=== PATIENT | female | born 1940 | race Two or more races ===

== ENCOUNTER 2017-01-22 22:59 | Emergency (ER) | payer MEDICARE, MEDICAID ==
[~2017-01-22] VITALS: Ht 165.1 cm; Wt 67.1 kg
[2017-01-22] MEDS ORDERED: PANTOPRAZOLE 80 MG in IV NS 0.9% 100 ML IV ONE (23:30)
[2017-01-22] MEDS ORDERED: PANTOPRAZOLE 80 MG in IV NS 0.9% 500 ML IV ONE (23:30)
[2017-01-22 23:51] LABS: BASOPHILS % (AUTO) 0.6 % (0.0-2.0); DIFF TOTAL % 100 %; EOSINOPHILS # (AUTO) 0.2 /CMM (0.0-0.7); EOSINOPHILS % (AUTO) 3.1 % (0.0-6.0); HEMATOCRIT 25 % (33-45); LYMPHOCYTES # (AUTO) 0.5 /CMM (0.8-4.8); LYMPHOCYTES % (AUTO) 10.1 % (20.0-44.0); MEAN CORPUSCULAR HEMOGLOBIN 33 PG (26.0-33.0); MEAN CORPUSCULAR HGB CONC 32 g/dl (31.0-36.0); MEAN CORPUSCULAR VOLUME 103 fL (82-100); MONOCYTES # (AUTO) 0.4 /CMM (0.1-1.30); MONOCYTES % (AUTO) 7.3 % (2.0-12.0); NEUTROPHILS % (AUTO) 78.9 % (43.0-81.0); PLATELET COUNT (AUTO) 177 /CMM (150-450); RED BLOOD CELL COUNT(AUTO) 2.41 MIL/uL (4.0-5.2); WHITE BLOOD COUNT (AUTO) 5.1 K/uL (4.3-11.0)
[2017-01-22 23:52] LABS: CALCIUM, SERUM 7.9 mg/dL (8.5-10.1); CREATININE 3.1 mg/dL (0.6-1.3); POTASSIUM 3.7 mmol/L (3.5-5.1)
[2017-01-22 23:58] LABS: ALBUMIN 2.6 g/dL (3.4-5.0); BILIRUBIN,DIRECT 0.2 mg/dL (0.0-0.2); BILIRUBIN,TOTAL 0.5 mg/dL (0.2-1.0); INDIRECT BILIRUBIN 0.3 mg/dL (0.0-1.1); TOTAL PROTEIN, SERUM 6.1 g/dL (6.4-8.2)
[2017-01-23 00:03] LABS: PROTHROMBIN TIME 10.8 SECS (9.5-12.7)
[2017-01-23 00:33] VITALS: BP 152/64
[2017-01-23 02:03] LABS: EOSINOPHILS % (MANUAL) 2 % (0-4); LYMPHOCYTES % (MANUAL) 10 % (16-48)
[2017-01-23 02:04] LABS: ANISOCYTOSIS 1+; PLATELET ESTIMATE ADEQUATE
== END 2017-01-23 00:37 | disposition home or self-care (01) ==
LOC: ER 23:02
DX: D64.9 Anemia, unspecified (principal); D53.9 Nutritional anemia, unspecified; R06.02 Shortness of breath; R53.1 Weakness; R42 Dizziness and giddiness; I12.0 Hypertensive chronic kidney disease with stage 5 chronic kidney disease or end stage renal disease; N18.6 End stage renal disease; E03.9 Hypothyroidism, unspecified; C50.912 Malignant neoplasm of unspecified site of left female breast; Z95.0 Presence of cardiac pacemaker; Z88.2 Allergy status to sulfonamides; Z88.8 Allergy status to other drugs, medicaments and biological substances
CPT/HCPCS: 36415 ×2; 71010; 80048; 80076; 85025; 85730; 86850; 99285; A4606; Z7610

== ENCOUNTER 2017-11-30 19:48 | Inpatient (IN) | payer MEDICARE, MEDICAID ==
[~2017-11-30] VITALS: Ht 154.9 cm; Wt 105.7 kg
[2017-11-30] MEDS ORDERED: ALBUTEROL FS 2.5 MG/3 ML VIAL.NEB CONTNEB ONE (20:00)
[2017-11-30] MEDS ORDERED: IPRATROPIUM NEB FS 0.5 MG/2.5 ML AMPUL.NEB NEB ONE (20:00)
[2017-11-30] MEDS ORDERED: methylPREDNISolone SOD SUCC 125 MG/2ML VIAL IV ONE (20:00)
[2017-11-30] MEDS ORDERED: methylPREDNISolone SOD SUCC 125 MG/2ML VIAL ONE ×2 (20:07→23:11)
[2017-11-30 20:14] LABS: BASOPHILS % (AUTO) 0.7 % (0.0-2.0); HEMATOCRIT 37 % (33-45); HEMOGLOBIN 12.4 g/dL (11.5-14.8); LYMPHOCYTES # (AUTO) 1.1 /CMM (0.8-4.8); LYMPHOCYTES % (AUTO) 17.7 % (20.0-44.0); MEAN CORPUSCULAR HEMOGLOBIN 36 PG (26.0-33.0); MEAN CORPUSCULAR HGB CONC 34 g/dl (31.0-36.0); MEAN CORPUSCULAR VOLUME 107 fL (82-100); MONOCYTES # (AUTO) 0.5 /CMM (0.1-1.30); MONOCYTES % (AUTO) 7.9 % (2.0-12.0); NEUTROPHILS # (AUTO) 4.8 /CMM (1.8-8.9); NEUTROPHILS % (AUTO) 73.7 % (43.0-81.0); PLATELET COUNT (AUTO) 105 /CMM (150-450); RDW COEFFICIENT OF VARIATION 15.6 (11.5-15.0); RED BLOOD CELL COUNT(AUTO) 3.42 MIL/uL (4.0-5.2); WHITE BLOOD COUNT (AUTO) 6.4 K/uL (4.3-11.0)
[2017-11-30 20:28] LABS: INR 0.95 (0.87-1.13)
[2017-11-30 20:30] LABS: ALBUMIN 2.9 g/dL (3.4-5.0); ALKALINE PHOSPHATASE 123 U/L (46-116); CALCIUM, SERUM 8.7 mg/dL (8.5-10.1); CARBON DIOXIDE 31 mmol/L (21-32); CREATININE 2.2 mg/dL (0.6-1.3); GLUCOSE 90 mg/dL (74-106); TOTAL PROTEIN, SERUM 7.5 g/dL (6.4-8.2); UREA NITROGEN, BLOOD 38 mg/dL (7-18)
[2017-11-30 20:32] LABS: TROPONIN I 0.138 ng/mL (0.00-0.056)
[2017-11-30] MEDS ORDERED: ALBUTEROL FS 2.5 MG/3 ML VIAL.NEB ONE (20:40)
[2017-11-30] MEDS ORDERED: IPRATROPIUM NEB FS 0.5 MG/2.5 ML AMPUL.NEB ONE (20:41)
[2017-11-30 20:54] VITALS: BP 117/51
[2017-11-30 20:57] LABS: ABG BASE EXCESS -0.9 mmol/L; ABG OXYGEN SATURATION 90.7 % (92.0-98.5); ABG PCO2 58.8 mmHg (35.0-45.0); ABG PH 7.276 (7.350-7.450); AaDO2 580.2 mmHg; COHb 1.4 % (0.5-1.5); MetHb 0.3 % (0.0-1.5); O2Hb 89.2 % (94.0-97.0); SITE, ABG Left Radial; VENT MODE, BG BIPAP 15/5 100% BR 16
[2017-11-30 21:02] LABS: CHLORIDE 99 mmol/L (98-107); SODIUM SERUM 129 mmol/L (136-145)
[2017-11-30 21:03] LABS: POTASSIUM 5.2 mmol/L (3.5-5.1)
[2017-11-30 21:12] LABS: ALANINE AMINOTRANSFERASE 20 U/L (12-78); ASPARTATE AMINOTRANSFERASE 40 U/L (15-37); BILIRUBIN,TOTAL 0.4 mg/dL (0.2-1.0)
[2017-11-30 22:00] VITALS: BP 110/48
[2017-11-30 23:00] VITALS: BP 104/52
[2017-11-30] MEDS ORDERED: ZOLPIDEM TARTRATE 5 MG TABLET PO PRN (23:00)
[2017-11-30 23:09] LABS: ABG BASE EXCESS 1.5 mmol/L; ABG PH 7.216 (7.350-7.450); ABG PO2 85.1 mmHg (75.0-100.0); AaDO2 402.4 mmHg; COHb 0.9 % (0.5-1.5); MetHb 0.3 % (0.0-1.5); O2Hb 91.9 % (94.0-97.0); SITE, ABG Left Radial; VENT MODE, BG ST 15/5
[2017-11-30] MEDS ORDERED: NOREPINEPHRINE 4 MG/4 ML AMPUL IV ONE (23:33)
[2017-11-30 23:47] VITALS: BP 81/40
[2017-12-01] VITALS (77 sets, daily range): BP systolic 81–167; BP diastolic 39–98
[2017-12-01] MEDS ORDERED: IV NS 0.9% 1,000 ML BAG IV PRN
[2017-12-01] MEDS ORDERED: NOREPINEPHRINE 16 MG in IV D5W 500 ML IV PRN ×2
[2017-12-01 00:41] LABS: ABG OXYGEN SATURATION 99.2 % (92.0-98.5); ABG PCO2 43.5 mmHg (35.0-45.0); ABG PH 7.396 (7.350-7.450); ABG PO2 215.9 mmHg (75.0-100.0); AaDO2 308.8 mmHg; COHb 0.8 % (0.5-1.5); MetHb 0.3 % (0.0-1.5); O2Hb 98.1 % (94.0-97.0); SITE, ABG Left Radial; VENT MODE, BG AC 16 500 80% +5
[2017-12-01] MEDS ORDERED: PROPOFOL 100 ML ONE (00:59)
[2017-12-01] MEDS ORDERED: PROPOFOL 100 ML IV PRN (01:00)
[2017-12-01] MEDS ORDERED: IPRATROPIUM NEB FS 0.5 MG/2.5 ML AMPUL.NEB ONE (01:52)
[2017-12-01] MEDS ORDERED: ALBUTEROL FS 2.5 MG/0.5 ML VIAL.NEB ONE (01:52)
[2017-12-01] MEDS: IPRATROPIUM NEB FS 0.5 MG/2.5 ML AMPUL.NEB NEB SCH ×4 (01:54→20:00)
[2017-12-01] MEDS: ALBUTEROL FS 2.5 MG/0.5 ML VIAL.NEB NEB SCH ×4 (01:55→20:00)
[2017-12-01] MEDS: methylPREDNISolone SOD SUCC 125 MG/2ML VIAL IV SCH ×5 (02:10→23:08)
[2017-12-01] MEDS ORDERED: IV NS 0.9% 1,000 ML IV SCH (02:30)
[2017-12-01] MEDS: IV NS 0.9% 1,000 ML IV SCH ×2 (05:06→10:01)
[2017-12-01 05:36] LABS: BASOPHILS % (AUTO) 0.8 % (0.0-2.0); HEMATOCRIT 27 % (33-45); HEMOGLOBIN 9.1 g/dL (11.5-14.8); LYMPHOCYTES # (AUTO) 0.1 /CMM (0.8-4.8); LYMPHOCYTES % (AUTO) 2.2 % (20.0-44.0); MEAN CORPUSCULAR HEMOGLOBIN 37 PG (26.0-33.0); MEAN CORPUSCULAR HGB CONC 34 g/dl (31.0-36.0); MEAN CORPUSCULAR VOLUME 110 fL (82-100); MONOCYTES # (AUTO) 0.1 /CMM (0.1-1.30); MONOCYTES % (AUTO) 1.7 % (2.0-12.0); NEUTROPHILS # (AUTO) 5.5 /CMM (1.8-8.9); NEUTROPHILS % (AUTO) 95.3 % (43.0-81.0); RDW COEFFICIENT OF VARIATION 15.7 (11.5-15.0); RED BLOOD CELL COUNT(AUTO) 2.46 MIL/uL (4.0-5.2); WHITE BLOOD COUNT (AUTO) 5.7 K/uL (4.3-11.0)
[2017-12-01 05:50] LABS: ALANINE AMINOTRANSFERASE 16 U/L (12-78); ALBUMIN 2.1 g/dL (3.4-5.0); ALKALINE PHOSPHATASE 82 U/L (46-116); ASPARTATE AMINOTRANSFERASE 19 U/L (15-37); BILIRUBIN,TOTAL 0.3 mg/dL (0.2-1.0); CALCIUM, SERUM 6.9 mg/dL (8.5-10.1); CARBON DIOXIDE 21 mmol/L (21-32); CHLORIDE 105 mmol/L (98-107); CREATININE 2.1 mg/dL (0.6-1.3); GLUCOSE 118 mg/dL (74-106); MAGNESIUM 1.7 mg/dL (1.8-2.4); PHOSPHORUS 2.8 mg/dL (2.5-4.9); POTASSIUM 3.8 mmol/L (3.5-5.1); SODIUM SERUM 139 mmol/L (136-145); TOTAL PROTEIN, SERUM 4.9 g/dL (6.4-8.2); UREA NITROGEN, BLOOD 35 mg/dL (7-18)
[2017-12-01 06:03] LABS: PLATELET COUNT (AUTO) 41 /CMM (150-450)
[2017-12-01 06:33] LABS: BAND % (MANUAL) 3 % (0.0-5.0); LYMPHOCYTES % (MANUAL) 3 % (16-48); MONOCYTES % (MANUAL) 1 % (0-11.0); NEUTROPHILS % (MANUAL) 93 (42-76)
[2017-12-01] MEDS ORDERED: methylPREDNISolone SOD SUCC 125 MG/2ML VIAL ONE (06:45)
[2017-12-01] MEDS ORDERED: VANCOMYCIN 1 GM in IV D5W 250 ML IV ONE (08:00)
[2017-12-01] MEDS ORDERED: FOLI1TAB16 PO (08:05)
[2017-12-01] MEDS ORDERED: GABA-532 PO (08:05)
[2017-12-01] MEDS ORDERED: LEVO50TA8 PO (08:05)
[2017-12-01] MEDS ORDERED: ACET-868 PO (08:05)
[2017-12-01] MEDS ORDERED: OMEP20CA10 PO (08:05)
[2017-12-01] MEDS ORDERED: NA P133E RC (08:05)
[2017-12-01] MEDS ORDERED: SEVE800T8 PO (08:05)
[2017-12-01] MEDS ORDERED: FOLI0.8T2 PO (08:05)
[2017-12-01] MEDS ORDERED: MAGN400O6 PO (08:05)
[2017-12-01] MEDS ORDERED: METO25TA3 PO (08:05)
[2017-12-01] MEDS ORDERED: FLUT1DIS3 IH (08:05)
[2017-12-01] MEDS ORDERED: FURO80TA85 PO (08:05)
[2017-12-01] MEDS ORDERED: BISA10SU8 RC (08:05)
[2017-12-01] MEDS ORDERED: AMLO10TA2 PO (08:05)
[2017-12-01] MEDS ORDERED: NITR0.4T48 SL (08:05)
[2017-12-01] MEDS ORDERED: IPRA3AMP IH (08:05)
[2017-12-01] MEDS ORDERED: AMIN30LI4 PO (08:05)
[2017-12-01] MEDS ORDERED: GUAI10SY3 PO (08:05)
[2017-12-01] MEDS ORDERED: DOCU-141 PO (08:05)
[2017-12-01] MEDS ORDERED: CALC-494 PO (08:05)
[2017-12-01] MEDS ORDERED: BENEFIBER PO (08:05)
[2017-12-01] MEDS ORDERED: LIDO30AD10 TP (08:05)
[2017-12-01] MEDS ORDERED: ASPI-1152 PO (08:05)
[2017-12-01] MEDS ORDERED: HYDR-4077 PO (08:05)
[2017-12-01] MEDS ORDERED: CYAN100T3 PO (08:07)
[2017-12-01] MEDS ORDERED: VITA1TAB56 PO (08:07)
[2017-12-01] MEDS ORDERED: ROSU10TA PO (08:07)
[2017-12-01] MEDS ORDERED: VALS80TA2 PO (08:07)
[2017-12-01] MEDS ORDERED: NAPH15DR68 EACHEYE (08:09)
[2017-12-01] MEDS: PANTOPRAZOLE 40 MG TABLET.DR PO SCH (09:00)
[2017-12-01] MEDS: GUAIFENESIN LA 600 MG TABLET.SA PO SCH ×2 (09:00→21:00)
[2017-12-01] MEDS ORDERED: FEE PK DOSING 1 MIN EA MC ONE (09:17)
[2017-12-01] MEDS ORDERED: CEFTRIAXONE 1 G VIAL IM SCH (09:30)
[2017-12-01] MEDS: AZITHROMYCIN 500 MG in IV D5W 250 ML IV SCH (11:14)
[2017-12-01] MEDS ORDERED: Magnesium 1GM/D5W 100ML PREMIX 100 ML IV SCH ×2 (11:40→11:42)
[2017-12-01] MEDS ORDERED: ROCURONIUM BROMIDE 50 MG/5 ML IV ONE (12:11)
[2017-12-01] MEDS: CEFTRIAXONE 1 G in IV D5W 50 ML IV SCH (12:25)
[2017-12-01] MEDS: PROPOFOL 10MG/ML 50ML 50 ML IV PRN ×4 (12:41→20:56)
[2017-12-01] MEDS: METRONIDAZOLE 500MG/ NS 100ML 500 MG in PREMIX 1 EA IV SCH ×2 (16:05→23:08)
[2017-12-02] VITALS (43 sets, daily range): BP systolic 99–174; BP diastolic 59–86
[2017-12-02] MEDS: PROPOFOL 10MG/ML 50ML 50 ML IV PRN ×8 (00:06→23:15)
[2017-12-02] MEDS: IV NS 0.9% 1,000 ML IV SCH (00:41)
[2017-12-02] MEDS: IPRATROPIUM NEB FS 0.5 MG/2.5 ML AMPUL.NEB NEB SCH ×4 (02:12→19:44)
[2017-12-02] MEDS: ALBUTEROL FS 2.5 MG/0.5 ML VIAL.NEB NEB SCH ×4 (02:12→19:44)
[2017-12-02 05:13] LABS: BASOPHILS % (AUTO) 0.1 % (0.0-2.0); HEMATOCRIT 30 % (33-45); HEMOGLOBIN 10.1 g/dL (11.5-14.8); LYMPHOCYTES # (AUTO) 0.3 /CMM (0.8-4.8); LYMPHOCYTES % (AUTO) 6.3 % (20.0-44.0); MEAN CORPUSCULAR HEMOGLOBIN 38 PG (26.0-33.0); MEAN CORPUSCULAR HGB CONC 34 g/dl (31.0-36.0); MEAN CORPUSCULAR VOLUME 110 fL (82-100); MONOCYTES # (AUTO) 0.2 /CMM (0.1-1.30); MONOCYTES % (AUTO) 3.6 % (2.0-12.0); NEUTROPHILS # (AUTO) 4.7 /CMM (1.8-8.9); PLATELET COUNT (AUTO) 52 /CMM (150-450); RDW COEFFICIENT OF VARIATION 15.5 (11.5-15.0); RED BLOOD CELL COUNT(AUTO) 2.68 MIL/uL (4.0-5.2); WHITE BLOOD COUNT (AUTO) 5.3 K/uL (4.3-11.0)
[2017-12-02 05:33] LABS: CALCIUM, SERUM 8.6 mg/dL (8.5-10.1); CARBON DIOXIDE 20 mmol/L (21-32); CHLORIDE 99 mmol/L (98-107); GLUCOSE 131 mg/dL (74-106); MAGNESIUM 2.7 mg/dL (1.8-2.4); PHOSPHORUS 4.7 mg/dL (2.5-4.9); SODIUM SERUM 131 mmol/L (136-145); UREA NITROGEN, BLOOD 60 mg/dL (7-18)
[2017-12-02 06:02] LABS: BAND % (MANUAL) 3 % (0.0-5.0); LYMPHOCYTES % (MANUAL) 4 % (16-48); NEUTROPHILS % (MANUAL) 93 (42-76)
[2017-12-02] MEDS: methylPREDNISolone SOD SUCC 125 MG/2ML VIAL IV SCH ×2 (06:16→16:16)
[2017-12-02] MEDS: METRONIDAZOLE 500MG/ NS 100ML 500 MG in PREMIX 1 EA IV SCH ×3 (06:16→22:01)
[2017-12-02] MEDS: AZITHROMYCIN 500 MG in IV D5W 250 ML IV SCH (08:52)
[2017-12-02] MEDS: PANTOPRAZOLE 40 MG TABLET.DR PO SCH (08:52)
[2017-12-02] MEDS: GUAIFENESIN LA 600 MG TABLET.SA PO SCH ×2 (08:52→20:02)
[2017-12-02 09:58] LABS: ABG BASE EXCESS -0.3 mmol/L; ABG OXYGEN SATURATION 97.4 % (92.0-98.5); ABG PCO2 31.6 mmHg (35.0-45.0); ABG PH 7.474 (7.350-7.450); ABG PO2 113.6 mmHg (75.0-100.0); AaDO2 99.2 mmHg; COHb 0.2 % (0.5-1.5); MetHb 0.2 % (0.0-1.5); PEEP,BG 5 cm H2O; SITE, ABG Right Radial; VENT MODE, BG AC 16 500 35% +5; VT, ABG 500 mL
[2017-12-02] MEDS: CEFTRIAXONE 1 G in IV D5W 50 ML IV SCH (10:31)
[2017-12-02] MEDS ORDERED: EPOETIN ALFA (10,000 UNIT) 10,000 UNIT/ML VIAL SQ ONE (11:30)
[2017-12-02] MEDS: MUPIROCIN 2% CREAM 15 GM TUBE TP SCH (20:01)
[2017-12-03] VITALS (41 sets, daily range): BP systolic 80–151; BP diastolic 42–94
[2017-12-03] MEDS: ALBUTEROL FS 2.5 MG/0.5 ML VIAL.NEB NEB SCH ×4 (02:10→19:56)
[2017-12-03] MEDS: IPRATROPIUM NEB FS 0.5 MG/2.5 ML AMPUL.NEB NEB SCH ×4 (02:10→19:56)
[2017-12-03] MEDS: PROPOFOL 10MG/ML 50ML 50 ML IV PRN ×3 (02:15→07:44)
[2017-12-03 05:41] LABS: BASOPHILS % (AUTO) 0.1 % (0.0-2.0); HEMATOCRIT 32 % (33-45); LYMPHOCYTES # (AUTO) 0.2 /CMM (0.8-4.8); LYMPHOCYTES % (AUTO) 3.7 % (20.0-44.0); MEAN CORPUSCULAR HEMOGLOBIN 37 PG (26.0-33.0); MEAN CORPUSCULAR HGB CONC 34 g/dl (31.0-36.0); MEAN CORPUSCULAR VOLUME 108 fL (82-100); MONOCYTES # (AUTO) 0.2 /CMM (0.1-1.30); MONOCYTES % (AUTO) 3.2 % (2.0-12.0); NEUTROPHILS # (AUTO) 5.2 /CMM (1.8-8.9); PLATELET COUNT (AUTO) 88 /CMM (150-450); RDW COEFFICIENT OF VARIATION 14.9 (11.5-15.0); RED BLOOD CELL COUNT(AUTO) 3.01 MIL/uL (4.0-5.2); WHITE BLOOD COUNT (AUTO) 5.6 K/uL (4.3-11.0)
[2017-12-03] MEDS: METRONIDAZOLE 500MG/ NS 100ML 500 MG in PREMIX 1 EA IV SCH ×3 (06:04→23:04)
[2017-12-03 06:06] LABS: CALCIUM, SERUM 8.1 mg/dL (8.5-10.1); CARBON DIOXIDE 20 mmol/L (21-32); CHLORIDE 98 mmol/L (98-107); CREATININE 3.4 mg/dL (0.6-1.3); GLUCOSE 117 mg/dL (74-106); MAGNESIUM 2.6 mg/dL (1.8-2.4); POTASSIUM 4.9 mmol/L (3.5-5.1); SODIUM SERUM 132 mmol/L (136-145); UREA NITROGEN, BLOOD 77 mg/dL (7-18)
[2017-12-03 06:22] LABS: BAND % (MANUAL) 6 % (0.0-5.0); EOSINOPHILS % (MANUAL) 1 % (0-4); LYMPHOCYTES % (MANUAL) 6 % (16-48); MONOCYTES % (MANUAL) 3 % (0-11.0); NEUTROPHILS % (MANUAL) 84 (42-76)
[2017-12-03] MEDS ORDERED: ALBUMIN 25% 25 GM in PREMIX 1 EA IV ONE (07:30)
[2017-12-03] MEDS: PANTOPRAZOLE 40 MG/PACK PACK GT SCH (09:00)
[2017-12-03] MEDS: GUAIFENESIN LA 600 MG TABLET.SA PO SCH ×2 (09:00→20:17)
[2017-12-03] MEDS: methylPREDNISolone SOD SUCC 125 MG/2ML VIAL IV SCH ×2 (09:19→16:21)
[2017-12-03] MEDS: AZITHROMYCIN 500 MG in IV D5W 250 ML IV SCH (09:19)
[2017-12-03] MEDS: MUPIROCIN 2% CREAM 15 GM TUBE TP SCH ×2 (09:21→20:18)
[2017-12-03] MEDS ORDERED: Z GUARD REMEDY 2 OZ OINT TP PRN (09:30)
[2017-12-03 11:15] LABS: ABG BASE EXCESS 3.2 mmol/L; ABG OXYGEN SATURATION 97.9 % (92.0-98.5); ABG PCO2 32.6 mmHg (35.0-45.0); ABG PH 7.515 (7.350-7.450); ABG PO2 130.3 mmHg (75.0-100.0); AaDO2 117.4 mmHg; COHb 0.4 % (0.5-1.5); MetHb 0.7 % (0.0-1.5); O2Hb 96.8 % (94.0-97.0); PEEP,BG 5 cm H2O; SITE, ABG Left Radial; VT, ABG 500 mL
[2017-12-03] MEDS: Z GUARD REMEDY 2 OZ OINT TP SCH ×2 (11:37→20:18)
[2017-12-03] MEDS: CEFTRIAXONE 1 G in IV D5W 50 ML IV SCH (11:37)
[2017-12-03] MEDS: VANCOMYCIN 500 MG in IV D5W 100 ML IV PRN (16:19)
[2017-12-04] VITALS (35 sets, daily range): BP systolic 107–170; BP diastolic 6–88
[2017-12-04] MEDS: ALBUTEROL FS 2.5 MG/0.5 ML VIAL.NEB NEB SCH (01:15)
[2017-12-04] MEDS: IPRATROPIUM NEB FS 0.5 MG/2.5 ML AMPUL.NEB NEB SCH (01:16)
[2017-12-04] MEDS: METRONIDAZOLE 500MG/ NS 100ML 500 MG in PREMIX 1 EA IV SCH ×3 (06:03→23:56)
[2017-12-04] MEDS: AZITHROMYCIN 500 MG in IV D5W 250 ML IV SCH (08:31)
[2017-12-04] MEDS: methylPREDNISolone SOD SUCC 125 MG/2ML VIAL IV SCH ×2 (08:32→16:00)
[2017-12-04] MEDS: PANTOPRAZOLE 40 MG/PACK PACK GT SCH (08:32)
[2017-12-04] MEDS: GUAIFENESIN LA 600 MG TABLET.SA PO SCH ×2 (08:32→20:55)
[2017-12-04] MEDS: Z GUARD REMEDY 2 OZ OINT TP SCH ×2 (08:32→20:55)
[2017-12-04] MEDS: MUPIROCIN 2% CREAM 15 GM TUBE TP SCH ×2 (08:33→20:56)
[2017-12-04] MEDS: CEFTRIAXONE 1 G in IV D5W 50 ML IV SCH (10:00)
[2017-12-04] MEDS ORDERED: PROPOFOL 10MG/ML 50ML 50 ML IV PRN (10:30)
[2017-12-05] VITALS (31 sets, daily range): BP systolic 121–188; BP diastolic 60–90
[2017-12-05] MEDS: METRONIDAZOLE 500MG/ NS 100ML 500 MG in PREMIX 1 EA IV SCH ×3 (06:02→23:27)
[2017-12-05] MEDS ORDERED: DC PROPOFOL WHEN EXTUBATED XX PRN (08:00)
[2017-12-05] MEDS: GUAIFENESIN LA 600 MG TABLET.SA PO SCH ×2 (08:24→21:50)
[2017-12-05] MEDS: PANTOPRAZOLE 40 MG/PACK PACK GT SCH (08:24)
[2017-12-05] MEDS: methylPREDNISolone SOD SUCC 125 MG/2ML VIAL IV SCH ×2 (08:24→16:22)
[2017-12-05] MEDS: AZITHROMYCIN 500 MG in IV D5W 250 ML IV SCH (08:25)
[2017-12-05] MEDS: MUPIROCIN 2% CREAM 15 GM TUBE TP SCH ×2 (08:26→21:54)
[2017-12-05] MEDS: Z GUARD REMEDY 2 OZ OINT TP SCH ×2 (08:27→21:55)
[2017-12-05 09:59] LABS: ABG BASE EXCESS -4.5 mmol/L; ABG OXYGEN SATURATION 96.3 % (92.0-98.5); ABG PCO2 31.8 mmHg (35.0-45.0); ABG PH 7.402 (7.350-7.450); ABG PO2 107.9 mmHg (75.0-100.0); AaDO2 104.7 mmHg; COHb 1.4 % (0.5-1.5); SITE, ABG Left Radial; VENT MODE, BG CPAP ps:12 35% +5
[2017-12-05] MEDS: CEFTRIAXONE 1 G in IV D5W 50 ML IV SCH (10:15)
[2017-12-05 11:47] LABS: ABG OXYGEN SATURATION 93.8 % (92.0-98.5); ABG PCO2 37.9 mmHg (35.0-45.0); ABG PO2 88.3 mmHg (75.0-100.0); AaDO2 95.5 mmHg; COHb 1.4 % (0.5-1.5); MetHb 0.3 % (0.0-1.5); O2Hb 92.2 % (94.0-97.0); SITE, ABG Left Radial; VENT MODE, BG Nasal Cannula
[2017-12-05] MEDS ORDERED: MORPHINE SULFATE INJ 4 MG/ML DISP.SYRIN ONE (22:09)
[2017-12-05] MEDS ORDERED: MORPHINE SULFATE INJ 4 MG/ML DISP.SYRIN IV PRN (22:30)
[2017-12-05] MEDS ORDERED: MORPHINE SULFATE INJ 2 MG/ML DISP.SYRIN IV PRN (22:30)
[2017-12-06] VITALS (23 sets, daily range): BP systolic 84–185; BP diastolic 49–86
[2017-12-06 05:54] LABS: HEMATOCRIT 34 % (33-45); HEMOGLOBIN 11.5 g/dL (11.5-14.8); LYMPHOCYTES # (AUTO) 0.4 /CMM (0.8-4.8); LYMPHOCYTES % (AUTO) 7.2 % (20.0-44.0); MEAN CORPUSCULAR HEMOGLOBIN 37 PG (26.0-33.0); MEAN CORPUSCULAR HGB CONC 34 g/dl (31.0-36.0); MEAN CORPUSCULAR VOLUME 108 fL (82-100); MONOCYTES # (AUTO) 0.2 /CMM (0.1-1.30); MONOCYTES % (AUTO) 4.8 % (2.0-12.0); NEUTROPHILS # (AUTO) 4.6 /CMM (1.8-8.9); PLATELET COUNT (AUTO) 100 /CMM (150-450); RDW COEFFICIENT OF VARIATION 15.2 (11.5-15.0); RED BLOOD CELL COUNT(AUTO) 3.11 MIL/uL (4.0-5.2); WHITE BLOOD COUNT (AUTO) 5.2 K/uL (4.3-11.0)
[2017-12-06 05:56] LABS: CALCIUM, SERUM 8.4 mg/dL (8.5-10.1); CARBON DIOXIDE 23 mmol/L (21-32); CHLORIDE 96 mmol/L (98-107); CREATININE 3.2 mg/dL (0.6-1.3); GLUCOSE 88 mg/dL (74-106); MAGNESIUM 2.5 mg/dL (1.8-2.4); PHOSPHORUS 7.7 mg/dL (2.5-4.9); POTASSIUM 4.8 mmol/L (3.5-5.1); SODIUM SERUM 133 mmol/L (136-145); UREA NITROGEN, BLOOD 73 mg/dL (7-18)
[2017-12-06] MEDS: METRONIDAZOLE 500MG/ NS 100ML 500 MG in PREMIX 1 EA IV SCH ×3 (07:09→23:08)
[2017-12-06] MEDS: GUAIFENESIN LA 600 MG TABLET.SA PO SCH ×2 (08:18→21:09)
[2017-12-06] MEDS: PANTOPRAZOLE 40 MG/PACK PACK GT SCH (08:18)
[2017-12-06] MEDS: methylPREDNISolone SOD SUCC 125 MG/2ML VIAL IV SCH ×2 (08:18→16:29)
[2017-12-06] MEDS: AZITHROMYCIN 500 MG in IV D5W 250 ML IV SCH (08:19)
[2017-12-06] MEDS: Z GUARD REMEDY 2 OZ OINT TP SCH ×2 (08:30→21:10)
[2017-12-06] MEDS: MUPIROCIN 2% CREAM 15 GM TUBE TP SCH ×2 (08:31→21:09)
[2017-12-06 08:51] LABS: ABG BASE EXCESS -6.6 mmol/L; ABG OXYGEN SATURATION 95.2 % (92.0-98.5); ABG PH 7.281 (7.350-7.450); ABG PO2 100.8 mmHg (75.0-100.0); AaDO2 77.1 mmHg; COHb 0.7 % (0.5-1.5); MetHb 0.6 % (0.0-1.5); SITE, ABG Left Radial
[2017-12-06] MEDS: CEFTRIAXONE 1 G in IV D5W 50 ML IV SCH (10:11)
[2017-12-06 10:37] LABS: ABG BASE EXCESS -7.3 mmol/L; ABG OXYGEN SATURATION 92.6 % (92.0-98.5); ABG PCO2 43.9 mmHg (35.0-45.0); ABG PH 7.264 (7.350-7.450); ABG PO2 86.9 mmHg (75.0-100.0); AaDO2 97.1 mmHg; COHb 0.6 % (0.5-1.5); MetHb 0.3 % (0.0-1.5); O2Hb 91.8 % (94.0-97.0); SITE, ABG Left Brachial; VENT MODE, BG nasal cannula
[2017-12-06] MEDS ORDERED: RENAL NOVASOURCE 1,000 ML BOTTLE GT PRN (13:30)
[2017-12-06] MEDS ORDERED: ALBUMIN 25% 25 GM in PREMIX 1 EA IV PRN (14:00)
[2017-12-06] MEDS ORDERED: ALBUMIN 25% 25 GM in PREMIX 1 EA IV ONE (14:00)
[2017-12-06] MEDS: ACETAMINOPHEN 325 MG TABLET PO PRN (15:31)
[2017-12-06 17:07] LABS: ABG BASE EXCESS -4.2 mmol/L; ABG OXYGEN SATURATION 95.2 % (92.0-98.5); ABG PCO2 45.1 mmHg (35.0-45.0); ABG PH 7.306 (7.350-7.450); ABG PO2 98.3 mmHg (75.0-100.0); AaDO2 84.3 mmHg; COHb 0.5 % (0.5-1.5); MetHb 0.3 % (0.0-1.5); O2Hb 94.4 % (94.0-97.0); SITE, ABG Left Brachial; VENT MODE, BG nasal cannula
[2017-12-06] MEDS: VANCOMYCIN 500 MG in IV D5W 100 ML IV PRN (19:16)
[2017-12-06] MEDS ORDERED: hydrALAZINE HCL 50 MG TABLET ONE (21:28)
[2017-12-06] MEDS: hydrALAZINE HCL 50 MG TABLET PO SCH (21:29)
[2017-12-07] VITALS (41 sets, daily range): BP systolic 106–201; BP diastolic 55–117
[2017-12-07] MEDS: ACETAMINOPHEN 325 MG TABLET PO PRN ×2 (03:23→10:15)
[2017-12-07 04:57] LABS: BASOPHILS % (AUTO) 0.2 % (0.0-2.0); HEMATOCRIT 32 % (33-45); HEMOGLOBIN 11.1 g/dL (11.5-14.8); LYMPHOCYTES # (AUTO) 0.3 /CMM (0.8-4.8); LYMPHOCYTES % (AUTO) 4.9 % (20.0-44.0); MEAN CORPUSCULAR HEMOGLOBIN 37 PG (26.0-33.0); MEAN CORPUSCULAR HGB CONC 34 g/dl (31.0-36.0); MEAN CORPUSCULAR VOLUME 108 fL (82-100); MONOCYTES # (AUTO) 0.2 /CMM (0.1-1.30); MONOCYTES % (AUTO) 3.8 % (2.0-12.0); NEUTROPHILS # (AUTO) 4.9 /CMM (1.8-8.9); NEUTROPHILS % (AUTO) 91.1 % (43.0-81.0); PLATELET COUNT (AUTO) 72 /CMM (150-450); RDW COEFFICIENT OF VARIATION 14.8 (11.5-15.0); RED BLOOD CELL COUNT(AUTO) 3.01 MIL/uL (4.0-5.2); WHITE BLOOD COUNT (AUTO) 5.4 K/uL (4.3-11.0)
[2017-12-07 05:23] LABS: CALCIUM, SERUM 8.2 mg/dL (8.5-10.1); CARBON DIOXIDE 24 mmol/L (21-32); CHLORIDE 94 mmol/L (98-107); CREATININE 2.7 mg/dL (0.6-1.3); GLUCOSE 142 mg/dL (74-106); MAGNESIUM 2.2 mg/dL (1.8-2.4); PHOSPHORUS 6.6 mg/dL (2.5-4.9); POTASSIUM 4.4 mmol/L (3.5-5.1); SODIUM SERUM 133 mmol/L (136-145); UREA NITROGEN, BLOOD 53 mg/dL (7-18)
[2017-12-07 06:09] LABS: LYMPHOCYTES % (MANUAL) 5 % (16-48); MONOCYTES % (MANUAL) 5 % (0-11.0); NEUTROPHILS % (MANUAL) 90 (42-76)
[2017-12-07] MEDS: METRONIDAZOLE 500MG/ NS 100ML 500 MG in PREMIX 1 EA IV SCH (07:08)
[2017-12-07 08:28] LABS: ABG BASE EXCESS 0.6 mmol/L; ABG OXYGEN SATURATION 89.9 % (92.0-98.5); ABG PCO2 51.3 mmHg (35.0-45.0); ABG PH 7.337 (7.350-7.450); ABG PO2 72.8 mmHg (75.0-100.0); AaDO2 153.4 mmHg; COHb 0.4 % (0.5-1.5); MetHb 0.3 % (0.0-1.5); O2Hb 89.3 % (94.0-97.0); SITE, ABG Left Radial; VENT MODE, BG NC 5L
[2017-12-07] MEDS: Z GUARD REMEDY 2 OZ OINT TP SCH ×2 (08:49→20:35)
[2017-12-07] MEDS: MUPIROCIN 2% CREAM 15 GM TUBE TP SCH ×2 (08:50→20:35)
[2017-12-07] MEDS: hydrALAZINE HCL 50 MG TABLET PO SCH ×2 (08:50→11:07)
[2017-12-07] MEDS: GUAIFENESIN LA 600 MG TABLET.SA PO SCH ×2 (08:53→20:34)
[2017-12-07] MEDS: AZITHROMYCIN 500 MG in IV D5W 250 ML IV SCH (08:54)
[2017-12-07] MEDS: methylPREDNISolone SOD SUCC 125 MG/2ML VIAL IV SCH ×2 (08:54→16:44)
[2017-12-07] MEDS: PANTOPRAZOLE 40 MG VIAL IV SCH (08:55)
[2017-12-07] MEDS ORDERED: AZITHROMYCIN 250 MG TABLET PO SCH (10:00)
[2017-12-07] MEDS: CEFTRIAXONE 1 G in IV D5W 50 ML IV SCH (11:07)
[2017-12-07 15:47] LABS: ABG BASE EXCESS -0.5 mmol/L; ABG OXYGEN SATURATION 93.3 % (92.0-98.5); ABG PCO2 52.9 mmHg (35.0-45.0); ABG PH 7.314 (7.350-7.450); ABG PO2 84.5 mmHg (75.0-100.0); AaDO2 139.9 mmHg; COHb 0.5 % (0.5-1.5); MetHb 0.1 % (0.0-1.5); O2Hb 92.7 % (94.0-97.0); SITE, ABG Left Radial; VENT MODE, BG NC 5L
[2017-12-07] MEDS: hydrALAZINE HCL IV 20 MG VIAL IV PRN (23:21)
[2017-12-08] VITALS (16 sets, daily range): BP systolic 137–175; BP diastolic 52–112
[2017-12-08 06:06] LABS: CALCIUM, SERUM 8.7 mg/dL (8.5-10.1); CARBON DIOXIDE 27 mmol/L (21-32); CHLORIDE 101 mmol/L (98-107); CREATININE 2.1 mg/dL (0.6-1.3); GLUCOSE 101 mg/dL (74-106); POTASSIUM 3.3 mmol/L (3.5-5.1); SODIUM SERUM 141 mmol/L (136-145); UREA NITROGEN, BLOOD 34 mg/dL (7-18)
[2017-12-08] MEDS: GUAIFENESIN LA 600 MG TABLET.SA PO SCH ×2 (09:00→21:00)
[2017-12-08] MEDS: MUPIROCIN 2% CREAM 15 GM TUBE TP SCH ×2 (09:14→21:43)
[2017-12-08] MEDS: methylPREDNISolone SOD SUCC 125 MG/2ML VIAL IV SCH ×2 (09:15→16:20)
[2017-12-08] MEDS: PANTOPRAZOLE 40 MG VIAL IV SCH (09:15)
[2017-12-08] MEDS: Z GUARD REMEDY 2 OZ OINT TP SCH ×2 (09:16→21:44)
[2017-12-08] MEDS: hydrALAZINE HCL IV 20 MG VIAL IV PRN (16:19)
[2017-12-09] VITALS (9 sets, daily range): BP systolic 112–178; BP diastolic 42–97
[2017-12-09] MEDS: hydrALAZINE HCL IV 20 MG VIAL IV PRN (01:49)
[2017-12-09 07:52] LABS: CALCIUM, SERUM 9.1 mg/dL (8.5-10.1); CARBON DIOXIDE 21 mmol/L (21-32); CHLORIDE 102 mmol/L (98-107); CREATININE 2.8 mg/dL (0.6-1.3); GLUCOSE 101 mg/dL (74-106); MAGNESIUM 2.3 mg/dL (1.8-2.4); PHOSPHORUS 5.4 mg/dL (2.5-4.9); POTASSIUM 3.8 mmol/L (3.5-5.1); SODIUM SERUM 142 mmol/L (136-145); UREA NITROGEN, BLOOD 48 mg/dL (7-18)
[2017-12-09] MEDS: GUAIFENESIN LA 600 MG TABLET.SA PO SCH ×2 (08:27→21:00)
[2017-12-09] MEDS: methylPREDNISolone SOD SUCC 125 MG/2ML VIAL IV SCH ×2 (08:30→16:31)
[2017-12-09] MEDS: PANTOPRAZOLE 40 MG VIAL IV SCH (08:30)
[2017-12-09] MEDS: MUPIROCIN 2% CREAM 15 GM TUBE TP SCH ×2 (08:31→21:58)
[2017-12-09] MEDS: Z GUARD REMEDY 2 OZ OINT TP SCH ×2 (08:31→21:59)
[2017-12-09 09:28] LABS: BASOPHILS % (AUTO) 0.2 % (0.0-2.0); HEMATOCRIT 32 % (33-45); HEMOGLOBIN 10.7 g/dL (11.5-14.8); LYMPHOCYTES # (AUTO) 0.4 /CMM (0.8-4.8); LYMPHOCYTES % (AUTO) 5.4 % (20.0-44.0); MEAN CORPUSCULAR HEMOGLOBIN 37 PG (26.0-33.0); MEAN CORPUSCULAR HGB CONC 34 g/dl (31.0-36.0); MEAN CORPUSCULAR VOLUME 109 fL (82-100); MONOCYTES # (AUTO) 0.6 /CMM (0.1-1.30); MONOCYTES % (AUTO) 7.7 % (2.0-12.0); NEUTROPHILS # (AUTO) 6.3 /CMM (1.8-8.9); NEUTROPHILS % (AUTO) 86.7 % (43.0-81.0); PLATELET COUNT (AUTO) 103 /CMM (150-450); RDW COEFFICIENT OF VARIATION 15.5 (11.5-15.0); WHITE BLOOD COUNT (AUTO) 7.3 K/uL (4.3-11.0)
[2017-12-09 10:44] LABS: LYMPHOCYTES % (MANUAL) 6 % (16-48); MONOCYTES % (MANUAL) 7 % (0-11.0); NEUTROPHILS % (MANUAL) 87 (42-76)
[2017-12-09] MEDS: ACETAMINOPHEN 650 MG/SUPP.RECT RC PRN ×2 (14:51→21:57)
[2017-12-09] MEDS ORDERED: NORMAL SALINE FLUSH 10 ML SYR IV PRN (16:30)
[2017-12-09] MEDS: METOPROLOL TARTRATE INJ 5 MG/5 ML AMPUL IVP SCH (18:57)
[2017-12-09] MEDS ORDERED: NORMAL SALINE FLUSH 10 ML SYR IV SCH (21:00)
[2017-12-10] VITALS: BP 131/69
[2017-12-10] MEDS: METOPROLOL TARTRATE INJ 5 MG/5 ML AMPUL IVP SCH ×4 (01:09→17:08)
[2017-12-10 04:00] VITALS: BP 90/44
[2017-12-10 04:47] LABS: ABG BASE EXCESS -9.1 mmol/L; ABG PCO2 64.5 mmHg (35.0-45.0); ABG PH 7.132 (7.350-7.450); ABG PO2 78.8 mmHg (75.0-100.0); AaDO2 59.3 mmHg; SITE, ABG Left Radial
[2017-12-10] MEDS ORDERED: IV NS 0.9% 250 ML IV ONE (06:00)
[2017-12-10 06:37] LABS: HEMATOCRIT 32 % (33-45); HEMOGLOBIN 10.5 g/dL (11.5-14.8); LYMPHOCYTES # (AUTO) 0.3 /CMM (0.8-4.8); LYMPHOCYTES % (AUTO) 6.2 % (20.0-44.0); MEAN CORPUSCULAR HEMOGLOBIN 37 PG (26.0-33.0); MEAN CORPUSCULAR HGB CONC 33 g/dl (31.0-36.0); MEAN CORPUSCULAR VOLUME 111 fL (82-100); MONOCYTES # (AUTO) 0.3 /CMM (0.1-1.30); MONOCYTES % (AUTO) 6.1 % (2.0-12.0); NEUTROPHILS # (AUTO) 4.7 /CMM (1.8-8.9); NEUTROPHILS % (AUTO) 87.7 % (43.0-81.0); PLATELET COUNT (AUTO) 117 /CMM (150-450); RED BLOOD CELL COUNT(AUTO) 2.84 MIL/uL (4.0-5.2); WHITE BLOOD COUNT (AUTO) 5.3 K/uL (4.3-11.0)
[2017-12-10 08:00] VITALS: BP 112/71
[2017-12-10] MEDS: MUPIROCIN 2% CREAM 15 GM TUBE TP SCH ×2 (08:12→21:53)
[2017-12-10] MEDS: methylPREDNISolone SOD SUCC 125 MG/2ML VIAL IV SCH ×2 (08:12→17:08)
[2017-12-10] MEDS: Z GUARD REMEDY 2 OZ OINT TP SCH ×2 (08:12→21:53)
[2017-12-10] MEDS: PANTOPRAZOLE 40 MG VIAL IV SCH (08:12)
[2017-12-10 08:15] LABS: CALCIUM, SERUM 9.2 mg/dL (8.5-10.1); CARBON DIOXIDE 19 mmol/L (21-32); CHLORIDE 109 mmol/L (98-107); CREATININE 2.2 mg/dL (0.6-1.3); GLUCOSE 113 mg/dL (74-106); MAGNESIUM 2.3 mg/dL (1.8-2.4); PHOSPHORUS 5.5 mg/dL (2.5-4.9); POTASSIUM 4.1 mmol/L (3.5-5.1); SODIUM SERUM 146 mmol/L (136-145); UREA NITROGEN, BLOOD 36 mg/dL (7-18)
[2017-12-10] MEDS: GUAIFENESIN LA 600 MG TABLET.SA PO SCH ×2 (08:24→21:00)
[2017-12-10 08:28] LABS: ABG BASE EXCESS -8.9 mmol/L; ABG OXYGEN SATURATION 92.1 % (92.0-98.5); ABG PCO2 65.5 mmHg (35.0-45.0); ABG PH 7.121 (7.350-7.450); ABG PO2 87.7 mmHg (75.0-100.0); AaDO2 85.7 mmHg; COHb 1.1 % (0.5-1.5); MetHb 0.6 % (0.0-1.5); O2Hb 90.5 % (94.0-97.0); SITE, ABG Right Radial; VENT MODE, BG ST 15/5 35%
[2017-12-10 09:10] LABS: LYMPHOCYTES % (MANUAL) 5 % (16-48); MONOCYTES % (MANUAL) 1 % (0-11.0); NEUTROPHILS % (MANUAL) 94 (42-76)
[2017-12-10] MEDS: Sodium Chloride 77 MEQ in IV 10% DEXTROSE 1,000 ML IV PRN (09:58)
[2017-12-10 12:00] VITALS: BP 117/58
[2017-12-10] MEDS ORDERED: ALBUMIN 25% 25 GM in PREMIX 1 EA IV PRN (12:00)
[2017-12-10 16:00] VITALS: BP 90/55
[2017-12-10 16:37] LABS: ABG BASE EXCESS -2.9 mmol/L; ABG OXYGEN SATURATION 94.2 % (92.0-98.5); ABG PCO2 51.8 mmHg (35.0-45.0); ABG PH 7.283 (7.350-7.450); ABG PO2 88.2 mmHg (75.0-100.0); AaDO2 101.1 mmHg; MetHb 0.6 % (0.0-1.5); O2Hb 92.7 % (94.0-97.0); PEEP,BG 5 cm H2O; SITE, ABG Right Radial; VENT MODE, BG ST 25/5 RR 22 35%
[2017-12-10 20:00] VITALS: BP 157/83
[2017-12-11] VITALS: BP 161/75
[2017-12-11 04:00] VITALS: BP 121/52
[2017-12-11] MEDS: METOPROLOL TARTRATE INJ 5 MG/5 ML AMPUL IVP SCH ×5 (06:00→23:38)
[2017-12-11 06:24] LABS: BASOPHILS % (AUTO) 0.2 % (0.0-2.0); HEMATOCRIT 27 % (33-45); HEMOGLOBIN 8.8 g/dL (11.5-14.8); LYMPHOCYTES # (AUTO) 0.3 /CMM (0.8-4.8); LYMPHOCYTES % (AUTO) 5.7 % (20.0-44.0); MEAN CORPUSCULAR HEMOGLOBIN 36 PG (26.0-33.0); MEAN CORPUSCULAR HGB CONC 33 g/dl (31.0-36.0); MEAN CORPUSCULAR VOLUME 110 fL (82-100); MONOCYTES # (AUTO) 0.3 /CMM (0.1-1.30); MONOCYTES % (AUTO) 5.7 % (2.0-12.0); NEUTROPHILS # (AUTO) 4.1 /CMM (1.8-8.9); NEUTROPHILS % (AUTO) 88.4 % (43.0-81.0); PLATELET COUNT (AUTO) 83 /CMM (150-450); RDW COEFFICIENT OF VARIATION 15.3 (11.5-15.0); RED BLOOD CELL COUNT(AUTO) 2.43 MIL/uL (4.0-5.2); WHITE BLOOD COUNT (AUTO) 4.7 K/uL (4.3-11.0)
[2017-12-11 06:43] LABS: CALCIUM, SERUM 9.1 mg/dL (8.5-10.1); CARBON DIOXIDE 31 mmol/L (21-32); CHLORIDE 106 mmol/L (98-107); CREATININE 2.1 mg/dL (0.6-1.3); GLUCOSE 132 mg/dL (74-106); MAGNESIUM 2.1 mg/dL (1.8-2.4); PHOSPHORUS 3.2 mg/dL (2.5-4.9); SODIUM SERUM 146 mmol/L (136-145); UREA NITROGEN, BLOOD 33 mg/dL (7-18)
[2017-12-11 07:03] LABS: POTASSIUM 2.8 mmol/L (3.5-5.1)
[2017-12-11 07:09] LABS: BAND % (MANUAL) 1 % (0.0-5.0); LYMPHOCYTES % (MANUAL) 5 % (16-48); MONOCYTES % (MANUAL) 6 % (0-11.0); NEUTROPHILS % (MANUAL) 88 (42-76)
[2017-12-11 08:00] VITALS: BP 145/60
[2017-12-11] MEDS: GUAIFENESIN LA 600 MG TABLET.SA PO SCH ×2 (08:38→21:00)
[2017-12-11] MEDS: PANTOPRAZOLE 40 MG VIAL IV SCH (08:49)
[2017-12-11] MEDS: methylPREDNISolone SOD SUCC 125 MG/2ML VIAL IV SCH ×2 (08:49→16:44)
[2017-12-11] MEDS: MUPIROCIN 2% CREAM 15 GM TUBE TP SCH ×2 (08:50→21:59)
[2017-12-11] MEDS: Z GUARD REMEDY 2 OZ OINT TP SCH ×2 (08:51→21:57)
[2017-12-11 12:00] VITALS: BP_SYST 163; BP_SYST 178; BP_DIAS 89; BP_DIAS 96
[2017-12-11] MEDS: Sodium Chloride 77 MEQ in IV 10% DEXTROSE 1,000 ML IV PRN (12:48)
[2017-12-11 12:57] LABS: ABG BASE EXCESS 3.1 mmol/L; ABG OXYGEN SATURATION 96.4 % (92.0-98.5); ABG PCO2 54.9 mmHg (35.0-45.0); ABG PH 7.348 (7.350-7.450); ABG PO2 105.2 mmHg (75.0-100.0); AaDO2 80.5 mmHg; COHb 0.4 % (0.5-1.5); MetHb 0.3 % (0.0-1.5); O2Hb 95.7 % (94.0-97.0); SITE, ABG Left Radial; VENT MODE, BG ST 25/5 22 35%
[2017-12-11 16:00] VITALS: BP_SYST 157; BP_SYST 175; BP_DIAS 89; BP_DIAS 99
[2017-12-11 20:00] VITALS: BP 131/79
[2017-12-12] VITALS (20 sets, daily range): BP systolic 120–183; BP diastolic 57–98
[2017-12-12] MEDS: METOPROLOL TARTRATE INJ 5 MG/5 ML AMPUL IVP SCH ×3 (05:34→18:00)
[2017-12-12 06:31] LABS: BASOPHILS % (AUTO) 0.3 % (0.0-2.0); HEMATOCRIT 29 % (33-45); HEMOGLOBIN 9.5 g/dL (11.5-14.8); LYMPHOCYTES # (AUTO) 0.3 /CMM (0.8-4.8); LYMPHOCYTES % (AUTO) 6.4 % (20.0-44.0); MEAN CORPUSCULAR HEMOGLOBIN 36 PG (26.0-33.0); MEAN CORPUSCULAR HGB CONC 33 g/dl (31.0-36.0); MEAN CORPUSCULAR VOLUME 110 fL (82-100); MONOCYTES # (AUTO) 0.3 /CMM (0.1-1.30); MONOCYTES % (AUTO) 6.3 % (2.0-12.0); NEUTROPHILS # (AUTO) 4.5 /CMM (1.8-8.9); PLATELET COUNT (AUTO) 73 /CMM (150-450); RDW COEFFICIENT OF VARIATION 15.5 (11.5-15.0); RED BLOOD CELL COUNT(AUTO) 2.63 MIL/uL (4.0-5.2); WHITE BLOOD COUNT (AUTO) 5.1 K/uL (4.3-11.0)
[2017-12-12 06:44] LABS: CALCIUM, SERUM 8.6 mg/dL (8.5-10.1); CARBON DIOXIDE 25 mmol/L (21-32); CHLORIDE 107 mmol/L (98-107); CREATININE 2.7 mg/dL (0.6-1.3); GLUCOSE 159 mg/dL (74-106); POTASSIUM 3.2 mmol/L (3.5-5.1); SODIUM SERUM 146 mmol/L (136-145); UREA NITROGEN, BLOOD 48 mg/dL (7-18)
[2017-12-12 08:43] LABS: LYMPHOCYTES % (MANUAL) 5 % (16-48); MONOCYTES % (MANUAL) 4 % (0-11.0); NEUTROPHILS % (MANUAL) 91 (42-76)
[2017-12-12] MEDS: GUAIFENESIN LA 600 MG TABLET.SA PO SCH ×2 (09:00→21:00)
[2017-12-12] MEDS: methylPREDNISolone SOD SUCC 125 MG/2ML VIAL IV SCH ×2 (09:25→17:15)
[2017-12-12] MEDS: PANTOPRAZOLE 40 MG VIAL IV SCH (09:25)
[2017-12-12] MEDS: Z GUARD REMEDY 2 OZ OINT TP SCH ×2 (09:26→21:44)
[2017-12-12] MEDS: MUPIROCIN 2% CREAM 15 GM TUBE TP SCH ×2 (09:28→21:44)
[2017-12-12] MEDS: Sodium Chloride 77 MEQ in IV 10% DEXTROSE 1,000 ML IV PRN (12:26)
[2017-12-12] MEDS ORDERED: TPN/PPN PER PHARMACY IV PRN (13:00)
[2017-12-12 13:57] LABS: ABG BASE EXCESS 5.8 mmol/L; ABG OXYGEN SATURATION 96.6 % (92.0-98.5); ABG PCO2 45.8 mmHg (35.0-45.0); ABG PH 7.443 (7.350-7.450); ABG PO2 105.1 mmHg (75.0-100.0); AaDO2 91.2 mmHg; COHb 0.7 % (0.5-1.5); MetHb 0.3 % (0.0-1.5); O2Hb 95.6 % (94.0-97.0); SITE, ABG Right Brachial; VENT MODE, BG BIPAP 25/5
[2017-12-12] MEDS ORDERED: MVI ADULT IV SCH (14:00)
[2017-12-12] MEDS ORDERED: D5W IV SCH (14:00)
[2017-12-12] MEDS: hydrALAZINE HCL IV 20 MG VIAL IV PRN (15:42)
[2017-12-12] MEDS ORDERED: DEXTROSE 50%-WATER 50 ML DISP.SYRIN IV PRN (17:00)
[2017-12-12] MEDS: MVI ADULT 10ML VIAL = 1AMP 10 ML in IV 10% DEXTROSE 1,000 ML IV SCH (17:15)
[2017-12-12] MEDS: BLOOD SUGAR DIAGNOSTIC 1 EACH STRIP IN SCH (17:42)
[2017-12-12] MEDS: INSULIN REGULAR, HUMAN 100 UNIT/ML 3 ML VIAL SQ PRN (18:10)
[2017-12-13] VITALS (24 sets, daily range): BP systolic 81–183; BP diastolic 31–96
[2017-12-13] MEDS: METOPROLOL TARTRATE INJ 5 MG/5 ML AMPUL IVP SCH ×4 (00:22→18:15)
[2017-12-13] MEDS: BLOOD SUGAR DIAGNOSTIC 1 EACH STRIP IN SCH ×4 (00:31→18:15)
[2017-12-13] MEDS: INSULIN REGULAR, HUMAN 100 UNIT/ML 3 ML VIAL SQ PRN ×3 (00:34→13:01)
[2017-12-13 05:36] LABS: CALCIUM, SERUM 8.5 mg/dL (8.5-10.1); CARBON DIOXIDE 30 mmol/L (21-32); CHLORIDE 102 mmol/L (98-107); CREATININE 2.2 mg/dL (0.6-1.3); GLUCOSE 145 mg/dL (74-106); POTASSIUM 3.6 mmol/L (3.5-5.1); SODIUM SERUM 141 mmol/L (136-145); UREA NITROGEN, BLOOD 44 mg/dL (7-18)
[2017-12-13 06:12] LABS: BASOPHILS % (AUTO) 0.2 % (0.0-2.0); HEMATOCRIT 32 % (33-45); HEMOGLOBIN 10.6 g/dL (11.5-14.8); LYMPHOCYTES # (AUTO) 0.5 /CMM (0.8-4.8); LYMPHOCYTES % (AUTO) 9.6 % (20.0-44.0); MEAN CORPUSCULAR HEMOGLOBIN 37 PG (26.0-33.0); MEAN CORPUSCULAR HGB CONC 34 g/dl (31.0-36.0); MEAN CORPUSCULAR VOLUME 109 fL (82-100); MONOCYTES # (AUTO) 0.2 /CMM (0.1-1.30); MONOCYTES % (AUTO) 3.7 % (2.0-12.0); NEUTROPHILS # (AUTO) 4.5 /CMM (1.8-8.9); NEUTROPHILS % (AUTO) 86.5 % (43.0-81.0); PLATELET COUNT (AUTO) 58 /CMM (150-450); RDW COEFFICIENT OF VARIATION 15.6 (11.5-15.0); RED BLOOD CELL COUNT(AUTO) 2.89 MIL/uL (4.0-5.2); WHITE BLOOD COUNT (AUTO) 5.2 K/uL (4.3-11.0)
[2017-12-13 06:26] LABS: BAND % (MANUAL) 3 % (0.0-5.0); LYMPHOCYTES % (MANUAL) 8 % (16-48); MONOCYTES % (MANUAL) 1 % (0-11.0); NEUTROPHILS % (MANUAL) 88 (42-76)
[2017-12-13] MEDS: GUAIFENESIN LA 600 MG TABLET.SA PO SCH ×2 (09:00→21:00)
[2017-12-13] MEDS: PANTOPRAZOLE 40 MG VIAL IV SCH (09:01)
[2017-12-13] MEDS: MUPIROCIN 2% CREAM 15 GM TUBE TP SCH ×2 (09:01→21:57)
[2017-12-13] MEDS: methylPREDNISolone SOD SUCC 125 MG/2ML VIAL IV SCH ×2 (09:01→18:14)
[2017-12-13] MEDS: Z GUARD REMEDY 2 OZ OINT TP SCH ×2 (09:01→21:57)
[2017-12-13] MEDS: hydrALAZINE HCL IV 20 MG VIAL IV PRN (09:24)
[2017-12-13 12:43] LABS: ABG BASE EXCESS 3.6 mmol/L; ABG OXYGEN SATURATION 95.2 % (92.0-98.5); ABG PCO2 45.6 mmHg (35.0-45.0); ABG PH 7.416 (7.350-7.450); ABG PO2 90.5 mmHg (75.0-100.0); AaDO2 55.3 mmHg; COHb 1.1 % (0.5-1.5); MetHb 0.3 % (0.0-1.5); O2Hb 93.9 % (94.0-97.0); SITE, ABG Left Radial; VENT MODE, BG nasal cannula
[2017-12-13] MEDS: MVI ADULT 10ML VIAL = 1AMP 10 ML in IV 10% DEXTROSE 1,000 ML IV SCH (12:45)
[2017-12-14] VITALS (7 sets, daily range): BP systolic 96–166; BP diastolic 57–83
[2017-12-14] MEDS: METOPROLOL TARTRATE INJ 5 MG/5 ML AMPUL IVP SCH ×4 (00:31→18:17)
[2017-12-14] MEDS: BLOOD SUGAR DIAGNOSTIC 1 EACH STRIP IN SCH ×4 (00:35→18:17)
[2017-12-14] MEDS: INSULIN REGULAR, HUMAN 100 UNIT/ML 3 ML VIAL SQ PRN ×3 (00:38→18:16)
[2017-12-14 07:26] LABS: EOSINOPHILS % (AUTO) 0.4 % (0.0-6.0); HEMATOCRIT 31 % (33-45); HEMOGLOBIN 10.2 g/dL (11.5-14.8); LYMPHOCYTES # (AUTO) 1.3 /CMM (0.8-4.8); LYMPHOCYTES % (AUTO) 23.6 % (20.0-44.0); MEAN CORPUSCULAR HEMOGLOBIN 36 PG (26.0-33.0); MEAN CORPUSCULAR HGB CONC 33 g/dl (31.0-36.0); MEAN CORPUSCULAR VOLUME 110 fL (82-100); MONOCYTES # (AUTO) 0.3 /CMM (0.1-1.30); MONOCYTES % (AUTO) 5.1 % (2.0-12.0); NEUTROPHILS % (AUTO) 70.9 % (43.0-81.0); RDW COEFFICIENT OF VARIATION 15.7 (11.5-15.0); RED BLOOD CELL COUNT(AUTO) 2.81 MIL/uL (4.0-5.2); WHITE BLOOD COUNT (AUTO) 5.7 K/uL (4.3-11.0)
[2017-12-14 07:39] LABS: PLATELET COUNT (AUTO) 45 /CMM (150-450)
[2017-12-14 07:40] LABS: CALCIUM, SERUM 8.1 mg/dL (8.5-10.1); CARBON DIOXIDE 27 mmol/L (21-32); CHLORIDE 100 mmol/L (98-107); CREATININE 2.6 mg/dL (0.6-1.3); GLUCOSE 121 mg/dL (74-106); INR 1.12 (0.87-1.13); POTASSIUM 3.2 mmol/L (3.5-5.1); SODIUM SERUM 136 mmol/L (136-145); UREA NITROGEN, BLOOD 59 mg/dL (7-18)
[2017-12-14 08:50] LABS: ABG BASE EXCESS 0.8 mmol/L; ABG OXYGEN SATURATION 97.8 % (92.0-98.5); ABG PCO2 55.2 mmHg (35.0-45.0); ABG PH 7.317 (7.350-7.450); ABG PO2 134.1 mmHg (75.0-100.0); AaDO2 0.4 mmHg; COHb 1.3 % (0.5-1.5); MetHb 0.3 % (0.0-1.5); O2Hb 96.2 % (94.0-97.0); SITE, ABG Left Radial; VENT MODE, BG 2L NC
[2017-12-14] MEDS: GUAIFENESIN LA 600 MG TABLET.SA PO SCH ×2 (09:00→21:51)
[2017-12-14 09:20] LABS: LYMPHOCYTES % (MANUAL) 10 % (16-48); MONOCYTES % (MANUAL) 7 % (0-11.0); NEUTROPHILS % (MANUAL) 83 (42-76)
[2017-12-14] MEDS: MVI ADULT 10ML VIAL = 1AMP 10 ML in IV 10% DEXTROSE 1,000 ML IV SCH (09:35)
[2017-12-14] MEDS: PANTOPRAZOLE 40 MG VIAL IV SCH (09:35)
[2017-12-14] MEDS: methylPREDNISolone SOD SUCC 125 MG/2ML VIAL IV SCH (09:35)
[2017-12-14] MEDS: MUPIROCIN 2% CREAM 15 GM TUBE TP SCH ×2 (09:36→21:51)
[2017-12-14] MEDS: Z GUARD REMEDY 2 OZ OINT TP SCH ×2 (09:36→21:50)
[2017-12-15] VITALS (20 sets, daily range): BP systolic 104–154; BP diastolic 49–74
[2017-12-15] MEDS: BLOOD SUGAR DIAGNOSTIC 1 EACH STRIP IN SCH ×4 (00:04→16:34)
[2017-12-15] MEDS: METOPROLOL TARTRATE INJ 5 MG/5 ML AMPUL IVP SCH ×3 (00:06→11:52)
[2017-12-15] MEDS: MVI ADULT 10ML VIAL = 1AMP 10 ML in IV 10% DEXTROSE 1,000 ML IV SCH (05:48)
[2017-12-15 07:14] LABS: EOSINOPHILS # (AUTO) 0.1 /CMM (0.0-0.7); HEMATOCRIT 28 % (33-45); HEMOGLOBIN 9.3 g/dL (11.5-14.8); LYMPHOCYTES # (AUTO) 0.9 /CMM (0.8-4.8); LYMPHOCYTES % (AUTO) 10.3 % (20.0-44.0); MEAN CORPUSCULAR HEMOGLOBIN 37 PG (26.0-33.0); MEAN CORPUSCULAR HGB CONC 33 g/dl (31.0-36.0); MEAN CORPUSCULAR VOLUME 111 fL (82-100); MONOCYTES # (AUTO) 0.3 /CMM (0.1-1.30); NEUTROPHILS # (AUTO) 7.9 /CMM (1.8-8.9); NEUTROPHILS % (AUTO) 85.7 % (43.0-81.0); PLATELET COUNT (AUTO) 68 /CMM (150-450); RDW COEFFICIENT OF VARIATION 15.7 (11.5-15.0); RED BLOOD CELL COUNT(AUTO) 2.53 MIL/uL (4.0-5.2); WHITE BLOOD COUNT (AUTO) 9.2 K/uL (4.3-11.0)
[2017-12-15 08:00] LABS: INR 1.1 (0.87-1.13)
[2017-12-15] MEDS: GUAIFENESIN LA 600 MG TABLET.SA PO SCH (08:50)
[2017-12-15 08:54] LABS: LYMPHOCYTES % (MANUAL) 4 % (16-48); MONOCYTES % (MANUAL) 5 % (0-11.0); NEUTROPHILS % (MANUAL) 91 (42-76)
[2017-12-15] MEDS: methylPREDNISolone SOD SUCC 125 MG/2ML VIAL IV SCH (08:54)
[2017-12-15] MEDS: FAMOTIDINE/PF INJ 20 MG/2 ML VIAL IV SCH ×2 (08:54→21:08)
[2017-12-15] MEDS: MUPIROCIN 2% CREAM 15 GM TUBE TP SCH ×2 (08:54→21:08)
[2017-12-15] MEDS: Z GUARD REMEDY 2 OZ OINT TP SCH ×2 (08:55→21:10)
[2017-12-15] MEDS ORDERED: ETOMIDATE 2 MG/ML VIAL ONE (09:06)
[2017-12-15 11:31] LABS: ABG BASE EXCESS -0.3 mmol/L; ABG OXYGEN SATURATION 92.4 % (92.0-98.5); ABG PCO2 55.4 mmHg (35.0-45.0); ABG PO2 77.1 mmHg (75.0-100.0); AaDO2 57.2 mmHg; COHb 0.8 % (0.5-1.5); O2Hb 91.7 % (94.0-97.0); SITE, ABG Right Radial; VENT MODE, BG NASAL CANNULA
[2017-12-15 14:30] LABS: ABG OXYGEN SATURATION 94.7 % (92.0-98.5); ABG PCO2 57.2 mmHg (35.0-45.0); ABG PH 7.294 (7.350-7.450); ABG PO2 90.9 mmHg (75.0-100.0); AaDO2 41.2 mmHg; MetHb 0.1 % (0.0-1.5); O2Hb 93.7 % (94.0-97.0); SITE, ABG Left Radial; VENT MODE, BG NASAL CANNULA
[2017-12-15] MEDS ORDERED: methylPREDNISolone SOD SUCC 125 MG/2ML VIAL IV ONE (16:00)
[2017-12-15] MEDS ORDERED: GUAIFENESIN 300 MG/15 ML UDC GT PRN (18:00)
[2017-12-15] MEDS: GUAIFENESIN 300 MG/15 ML UDC GT SCH (18:09)
[2017-12-15] MEDS ORDERED: METOPROLOL TARTRATE 25 MG TABLET ONE (19:54)
[2017-12-15] MEDS: METOPROLOL TARTRATE 25 MG TABLET PEG SCH (21:00)
[2017-12-15] MEDS: hydrALAZINE HCL IV 20 MG VIAL IV PRN (21:51)
[2017-12-15] MEDS: INSULIN REGULAR, HUMAN 100 UNIT/ML 3 ML VIAL SQ PRN (23:57)
[2017-12-16] VITALS (21 sets, daily range): BP systolic 100–135; BP diastolic 45–68
[2017-12-16] MEDS: GUAIFENESIN 300 MG/15 ML UDC GT SCH ×4 (00:11→17:20)
[2017-12-16] MEDS: ACETAMINOPHEN 325 MG TABLET PO PRN (00:12)
[2017-12-16] MEDS: BLOOD SUGAR DIAGNOSTIC 1 EACH STRIP IN SCH ×4 (05:27→17:20)
[2017-12-16] MEDS: INSULIN REGULAR, HUMAN 100 UNIT/ML 3 ML VIAL SQ PRN ×2 (05:27→17:27)
[2017-12-16] MEDS ORDERED: GUAIFENESIN 300 MG/15 ML UDC ONE (05:41)
[2017-12-16] MEDS ORDERED: RENAL NOVASOURCE 1,000 ML BOTTLE GT PRN ×2 (06:00→09:30)
[2017-12-16] MEDS: METOPROLOL TARTRATE 25 MG TABLET PEG SCH ×2 (09:00→21:10)
[2017-12-16] MEDS: methylPREDNISolone SOD SUCC 125 MG/2ML VIAL IV SCH (09:16)
[2017-12-16] MEDS: FAMOTIDINE/PF INJ 20 MG/2 ML VIAL IV SCH ×2 (09:16→20:56)
[2017-12-16] MEDS: Z GUARD REMEDY 2 OZ OINT TP SCH ×2 (09:16→21:01)
[2017-12-16] MEDS: MUPIROCIN 2% CREAM 15 GM TUBE TP SCH ×2 (09:16→21:00)
[2017-12-16 09:31] LABS: CALCIUM, SERUM 8.4 mg/dL (8.5-10.1); CARBON DIOXIDE 25 mmol/L (21-32); CHLORIDE 102 mmol/L (98-107); CREATININE 2.7 mg/dL (0.6-1.3); GLUCOSE 141 mg/dL (74-106); POTASSIUM 3.2 mmol/L (3.5-5.1); SODIUM SERUM 138 mmol/L (136-145); UREA NITROGEN, BLOOD 53 mg/dL (7-18)
[2017-12-16] MEDS: MVI ADULT 10ML VIAL = 1AMP 10 ML in IV 10% DEXTROSE 1,000 ML IV SCH (09:48)
[2017-12-16 09:51] LABS: BASOPHILS % (AUTO) 0.1 % (0.0-2.0); EOSINOPHILS # (AUTO) 0.1 /CMM (0.0-0.7); EOSINOPHILS % (AUTO) 0.6 % (0.0-6.0); HEMATOCRIT 28 % (33-45); HEMOGLOBIN 9.6 g/dL (11.5-14.8); LYMPHOCYTES # (AUTO) 0.8 /CMM (0.8-4.8); LYMPHOCYTES % (AUTO) 8.5 % (20.0-44.0); MEAN CORPUSCULAR HEMOGLOBIN 37 PG (26.0-33.0); MEAN CORPUSCULAR HGB CONC 34 g/dl (31.0-36.0); MEAN CORPUSCULAR VOLUME 109 fL (82-100); MONOCYTES # (AUTO) 0.3 /CMM (0.1-1.30); MONOCYTES % (AUTO) 2.9 % (2.0-12.0); NEUTROPHILS # (AUTO) 8.7 /CMM (1.8-8.9); NEUTROPHILS % (AUTO) 87.9 % (43.0-81.0); RDW COEFFICIENT OF VARIATION 14.7 (11.5-15.0); WHITE BLOOD COUNT (AUTO) 9.9 K/uL (4.3-11.0)
[2017-12-16 09:53] LABS: PLATELET COUNT (AUTO) 42 /CMM (150-450)
[2017-12-16 10:49] LABS: ABG BASE EXCESS -0.6 mmol/L; ABG OXYGEN SATURATION 96.7 % (92.0-98.5); ABG PCO2 45.7 mmHg (35.0-45.0); ABG PH 7.357 (7.350-7.450); ABG PO2 108.2 mmHg (75.0-100.0); AaDO2 37.5 mmHg; COHb 0.5 % (0.5-1.5); MetHb 0.2 % (0.0-1.5); SITE, ABG Left Brachial
[2017-12-16] MEDS ORDERED: EPOETIN ALFA (10,000 UNIT) 10,000 UNIT/ML VIAL SQ ONE (11:30)
[2017-12-16] MEDS: CLOTRIMAZOLE 1% 15 GM TUBE TP SCH ×2 (11:53→17:28)
[2017-12-16 12:07] LABS: LYMPHOCYTES % (MANUAL) 6 % (16-48); MONOCYTES % (MANUAL) 4 % (0-11.0); NEUTROPHILS % (MANUAL) 90 (42-76)
[2017-12-16] MEDS: ACETAMINOPHEN 650 MG/20.3 ML UDC GT PRN (15:18)
[2017-12-16] MEDS: NORMAL SALINE FLUSH 10 ML SYR IV SCH (21:03)
[2017-12-17] VITALS: BP 145/59
[2017-12-17] MEDS: GUAIFENESIN 300 MG/15 ML UDC GT SCH ×4 (01:12→17:19)
[2017-12-17] MEDS: INSULIN REGULAR, HUMAN 100 UNIT/ML 3 ML VIAL SQ PRN ×4 (01:14→17:23)
[2017-12-17 04:00] VITALS: BP 129/88
[2017-12-17] MEDS: BLOOD SUGAR DIAGNOSTIC 1 EACH STRIP IN SCH ×4 (05:36→17:20)
[2017-12-17] MEDS: NORMAL SALINE FLUSH 10 ML SYR IV SCH ×3 (05:37→21:03)
[2017-12-17 08:00] VITALS: BP 138/59
[2017-12-17 08:07] LABS: CALCIUM, SERUM 8.6 mg/dL (8.5-10.1); CARBON DIOXIDE 24 mmol/L (21-32); CHLORIDE 105 mmol/L (98-107); GLUCOSE 127 mg/dL (74-106); MAGNESIUM 1.9 mg/dL (1.8-2.4); PHOSPHORUS 1.8 mg/dL (2.5-4.9); POTASSIUM 3.3 mmol/L (3.5-5.1); SODIUM SERUM 140 mmol/L (136-145); UREA NITROGEN, BLOOD 42 mg/dL (7-18)
[2017-12-17] MEDS: methylPREDNISolone SOD SUCC 125 MG/2ML VIAL IV SCH (08:41)
[2017-12-17] MEDS: METOPROLOL TARTRATE 25 MG TABLET PEG SCH ×2 (08:41→21:02)
[2017-12-17] MEDS: FAMOTIDINE/PF INJ 20 MG/2 ML VIAL IV SCH ×2 (08:41→21:00)
[2017-12-17] MEDS: MUPIROCIN 2% CREAM 15 GM TUBE TP SCH ×2 (08:42→21:03)
[2017-12-17] MEDS: Z GUARD REMEDY 2 OZ OINT TP SCH ×2 (08:42→21:03)
[2017-12-17] MEDS: CLOTRIMAZOLE 1% 15 GM TUBE TP SCH ×2 (08:42→17:20)
[2017-12-17 08:52] LABS: EOSINOPHILS % (AUTO) 0.1 % (0.0-6.0); HEMATOCRIT 28 % (33-45); HEMOGLOBIN 9.4 g/dL (11.5-14.8); LYMPHOCYTES # (AUTO) 0.7 /CMM (0.8-4.8); LYMPHOCYTES % (AUTO) 7.5 % (20.0-44.0); MEAN CORPUSCULAR HEMOGLOBIN 37 PG (26.0-33.0); MEAN CORPUSCULAR HGB CONC 34 g/dl (31.0-36.0); MEAN CORPUSCULAR VOLUME 110 fL (82-100); MONOCYTES # (AUTO) 0.3 /CMM (0.1-1.30); MONOCYTES % (AUTO) 3.8 % (2.0-12.0); NEUTROPHILS # (AUTO) 8.1 /CMM (1.8-8.9); NEUTROPHILS % (AUTO) 88.6 % (43.0-81.0); RDW COEFFICIENT OF VARIATION 15.8 (11.5-15.0); RED BLOOD CELL COUNT(AUTO) 2.56 MIL/uL (4.0-5.2); WHITE BLOOD COUNT (AUTO) 9.2 K/uL (4.3-11.0)
[2017-12-17 09:03] LABS: PLATELET COUNT (AUTO) 40 /CMM (150-450)
[2017-12-17] MEDS ORDERED: POTASSIUM CHLORIDE 20 MEQ POWDER PACKET GT ONE (12:00)
[2017-12-17 12:06] LABS: LYMPHOCYTES % (MANUAL) 3 % (16-48); MONOCYTES % (MANUAL) 8 % (0-11.0); NEUTROPHILS % (MANUAL) 89 (42-76)
[2017-12-17] MEDS ORDERED: NEUTRA PHOS 1 POWD.PACKET NG ONE (13:30)
[2017-12-17 16:00] VITALS: BP 146/67
[2017-12-17] MEDS: ACETAMINOPHEN 650 MG/20.3 ML UDC GT PRN (17:19)
[2017-12-17 20:00] VITALS: BP 141/81
[2017-12-18] MEDS: INSULIN REGULAR, HUMAN 100 UNIT/ML 3 ML VIAL SQ PRN ×2 (01:00→05:34)
[2017-12-18] MEDS: GUAIFENESIN 300 MG/15 ML UDC GT SCH ×3 (01:01→12:06)
[2017-12-18] MEDS: BLOOD SUGAR DIAGNOSTIC 1 EACH STRIP IN SCH ×3 (01:01→12:06)
[2017-12-18 04:00] VITALS: BP 131/52
[2017-12-18] MEDS: NORMAL SALINE FLUSH 10 ML SYR IV SCH ×2 (05:21→12:06)
[2017-12-18] MEDS: ACETAMINOPHEN 650 MG/20.3 ML UDC GT PRN (05:33)
[2017-12-18 07:43] LABS: EOSINOPHILS % (AUTO) 0.1 % (0.0-6.0); HEMATOCRIT 30 % (33-45); HEMOGLOBIN 9.9 g/dL (11.5-14.8); LYMPHOCYTES # (AUTO) 1.4 /CMM (0.8-4.8); LYMPHOCYTES % (AUTO) 13.3 % (20.0-44.0); MEAN CORPUSCULAR HEMOGLOBIN 37 PG (26.0-33.0); MEAN CORPUSCULAR HGB CONC 33 g/dl (31.0-36.0); MEAN CORPUSCULAR VOLUME 112 fL (82-100); MONOCYTES # (AUTO) 0.5 /CMM (0.1-1.30); MONOCYTES % (AUTO) 4.6 % (2.0-12.0); NEUTROPHILS # (AUTO) 8.5 /CMM (1.8-8.9); RDW COEFFICIENT OF VARIATION 16.1 (11.5-15.0); RED BLOOD CELL COUNT(AUTO) 2.67 MIL/uL (4.0-5.2); WHITE BLOOD COUNT (AUTO) 10.3 K/uL (4.3-11.0)
[2017-12-18 07:57] LABS: PLATELET COUNT (AUTO) 39 /CMM (150-450)
[2017-12-18 08:00] VITALS: BP 98/46
[2017-12-18 08:00] LABS: CALCIUM, SERUM 7.5 mg/dL (8.5-10.1); CARBON DIOXIDE 25 mmol/L (21-32); CHLORIDE 103 mmol/L (98-107); CREATININE 2.5 mg/dL (0.6-1.3); GLUCOSE 130 mg/dL (74-106); POTASSIUM 3.9 mmol/L (3.5-5.1); SODIUM SERUM 139 mmol/L (136-145); UREA NITROGEN, BLOOD 72 mg/dL (7-18)
[2017-12-18] MEDS: METOPROLOL TARTRATE 25 MG TABLET PEG SCH (09:00)
[2017-12-18] MEDS: CLOTRIMAZOLE 1% 15 GM TUBE TP SCH (09:01)
[2017-12-18] MEDS: MUPIROCIN 2% CREAM 15 GM TUBE TP SCH (09:02)
[2017-12-18] MEDS: Z GUARD REMEDY 2 OZ OINT TP SCH (09:02)
[2017-12-18] MEDS: methylPREDNISolone SOD SUCC 125 MG/2ML VIAL IV SCH (09:02)
[2017-12-18] MEDS: FAMOTIDINE/PF INJ 20 MG/2 ML VIAL IV SCH (09:02)
[2017-12-18 11:47] LABS: EOSINOPHILS % (MANUAL) 1 % (0-4); LYMPHOCYTES % (MANUAL) 4 % (16-48); MONOCYTES % (MANUAL) 6 % (0-11.0); NEUTROPHILS % (MANUAL) 89 (42-76)
== END 2017-12-18 15:28 | DRG 870 ==
LOC: ER 19:54 → ICU 22:33 → TELE1 12-08 04:13 → MEDSG1 12-08 11:12 → TELE1 12-08 16:32 → TELE-TD 12-09 18:46 → ICU 12-12 14:36 → TELE-TD 12-13 18:39 → ICU 12-15 16:12 → TELE-TD 12-16 16:00 → MEDSG1 12-17 10:48
PROVIDERS: ADMIT Internal Medicine; ATTEND Internal Medicine
PROC: 5A1955Z Respiratory Ventilation, Greater than 96 Consecutive Hours (ICD-10-PCS; principal; 2017-11-30)
PROC: 0BH17EZ Insertion of Endotracheal Airway into Trachea, Via Natural or Artificial Opening (ICD-10-PCS; 2017-11-30)
PROC: 5A09357 Assistance with Respiratory Ventilation, Less than 24 Consecutive Hours, Continuous Positive Airway Pressure (ICD-10-PCS; 2017-11-30)
PROC: 5A1D70Z Performance of Urinary Filtration, Intermittent, Less than 6 Hours Per Day (ICD-10-PCS; 2017-12-03)
PROC: 5A1D70Z Performance of Urinary Filtration, Intermittent, Less than 6 Hours Per Day (ICD-10-PCS; 2017-12-04)
PROC: 5A1D70Z Performance of Urinary Filtration, Intermittent, Less than 6 Hours Per Day (ICD-10-PCS; 2017-12-06)
PROC: 5A1D70Z Performance of Urinary Filtration, Intermittent, Less than 6 Hours Per Day (ICD-10-PCS; 2017-12-07)
PROC: 05H633Z Insertion of Infusion Device into Left Subclavian Vein, Percutaneous Approach (ICD-10-PCS; 2017-12-08)
PROC: 05H533Z Insertion of Infusion Device into Right Subclavian Vein, Percutaneous Approach (ICD-10-PCS; 2017-12-09)
PROC: 5A1D70Z Performance of Urinary Filtration, Intermittent, Less than 6 Hours Per Day (ICD-10-PCS; 2017-12-09)
PROC: 5A1D70Z Performance of Urinary Filtration, Intermittent, Less than 6 Hours Per Day (ICD-10-PCS; 2017-12-10)
PROC: 5A09457 Assistance with Respiratory Ventilation, 24-96 Consecutive Hours, Continuous Positive Airway Pressure (ICD-10-PCS; 2017-12-11)
PROC: 5A1D70Z Performance of Urinary Filtration, Intermittent, Less than 6 Hours Per Day (ICD-10-PCS; 2017-12-12)
PROC: 5A1D70Z Performance of Urinary Filtration, Intermittent, Less than 6 Hours Per Day (ICD-10-PCS; 2017-12-13)
PROC: 30233N1 Transfusion of Nonautologous Red Blood Cells into Peripheral Vein, Percutaneous Approach (ICD-10-PCS; 2017-12-14)
PROC: 5A1D70Z Performance of Urinary Filtration, Intermittent, Less than 6 Hours Per Day (ICD-10-PCS; 2017-12-14)
PROC: 0DH63UZ Insertion of Feeding Device into Stomach, Percutaneous Approach (ICD-10-PCS; 2017-12-15)
PROC: 0DB78ZX Excision of Stomach, Pylorus, Via Natural or Artificial Opening Endoscopic, Diagnostic (ICD-10-PCS; 2017-12-15)
PROC: 5A1D70Z Performance of Urinary Filtration, Intermittent, Less than 6 Hours Per Day (ICD-10-PCS; 2017-12-16)
PROC: 5A1D70Z Performance of Urinary Filtration, Intermittent, Less than 6 Hours Per Day (ICD-10-PCS; 2017-12-18)
DX: A41.9 Sepsis, unspecified organism (principal); J69.0 Pneumonitis due to inhalation of food and vomit; R65.21 Severe sepsis with septic shock; G93.41 Metabolic encephalopathy; J96.01 Acute respiratory failure with hypoxia; J96.02 Acute respiratory failure with hypercapnia; J90 Pleural effusion, not elsewhere classified; J44.0 Chronic obstructive pulmonary disease with (acute) lower respiratory infection; E44.0 Moderate protein-calorie malnutrition; E87.2 Acidosis; B35.4 Tinea corporis; J98.11 Atelectasis; N18.6 End stage renal disease; J44.1 Chronic obstructive pulmonary disease with (acute) exacerbation; I12.0 Hypertensive chronic kidney disease with stage 5 chronic kidney disease or end stage renal disease; Z68.41 Body mass index [BMI] 40.0-44.9, adult; R13.10 Dysphagia, unspecified; D69.2 Other nonthrombocytopenic purpura; D69.59 Other secondary thrombocytopenia; D63.8 Anemia in other chronic diseases classified elsewhere; Z99.2 Dependence on renal dialysis; E03.9 Hypothyroidism, unspecified; E78.5 Hyperlipidemia, unspecified; E87.6 Hypokalemia; Z66 Do not resuscitate; K21.9 Gastro-esophageal reflux disease without esophagitis; I25.10 Atherosclerotic heart disease of native coronary artery without angina pectoris; Z88.2 Allergy status to sulfonamides; E83.9 Disorder of mineral metabolism, unspecified; L98.8 Other specified disorders of the skin and subcutaneous tissue; S30.810A Abrasion of lower back and pelvis, initial encounter; X58.XXXA Exposure to other specified factors, initial encounter; Y93.9 Activity, unspecified; Y92.129 Unspecified place in nursing home as the place of occurrence of the external cause; S50.12XA Contusion of left forearm, initial encounter; S50.11XA Contusion of right forearm, initial encounter; S20.411A Abrasion of right back wall of thorax, initial encounter; E88.09 Other disorders of plasma-protein metabolism, not elsewhere classified; D50.9 Iron deficiency anemia, unspecified
CPT/HCPCS: 31720; 36415; 36600; 71045-TC; 80048-TC; 80053-TC; 80076-TC; 80202-TC; 82746; 82803-TC; 82962-TC; 83605-TC; 83735-TC; 84100-TC; 84484-TC; 85025-TC; 85385-TC; 85610-TC; 85730-TC; 86850-TC; 87040-TC; 87081-TC; 87400; 90935-TC; 92521; 92526; 92611-TC; 94002-TC; 94003-TC; 94660; 94762-TC; 94799-TC; 99082-TC; A4216; A4606; C1769; C9113; J0360; J0456; J0696; J0885; J1815; J2270; J2930; J3370; J3475; J3490; J7030; J7050; J7060; J7070; P9016-BL; P9034-BL; P9047; Z7610